=== PATIENT | female | born 1985 | race Caucasian/White ===

== ENCOUNTER 2016-02-27 12:00 | Emergency (ER) | payer BC ==
[~2016-02-27] VITALS: Ht 157.5 cm; Wt 73.0 kg
[2016-02-27 12:22] VITALS: BP 113/63; PULSE 84; RESP 17; O2SAT 98
--- NOTE | 2016-02-27 12:34 | PD ---
HPI Chief Complaint: GI Complaint Time Seen by Provider: 12:34 Travel History International Travel<30 days: No Contact w/Intl Traveler<30days: No Traveled to known affect area: No History of Present Illness HPI 31-year-old female with no significant medical history, presents to the emergency department for evaluation of nausea, vomiting, diarrhea since yesterday. Patient has felt febrile and chilled. She has not taken her temperature. She denies any significant abdominal pain. No little red or black tarry stools. No coffee-ground or little red emesis. No cough or chest congestion. The patient has no other symptoms to report of the same. [facility] Past Medical History Medical History: Denies Significant Hx Medical other: Yes (graves) ?: Not LMP: current Past Surgical History Section: Yes Cholecystectomy: Yes Social History Alcohol Use: Yes Tobacco Use: No Substance Use: No Allergies-Medications (Allergen,Severity, Reaction): Coded Allergies: Sulfa (Verified Allergy, Severe, 02/27/16) Reported Meds & Prescriptions Reported Meds & Active Scripts Active Zofran Odt (Ondansetron Odt) 4 Mg Tab 4 Mg SL Q6HR PRN Review of Systems Except as stated in HPI: all other systems reviewed are Neg Physical Exam Narrative GENERAL: Well-nourished, well-developed male patient in no acute distress SKIN: Warm and dry. HEAD: Normocephalic. EYES: No scleral icterus. No injection or drainage. NECK: Supple, trachea midline. No JVD or lymphadenopathy. CARDIOVASCULAR: Regular rate and rhythm without murmurs, gallops, or rubs. RESPIRATORY: Breath sounds equal bilaterally. No accessory muscle use. Abdomen: Abdomen soft, non-tender, nondistended. Positive bowel sounds. No hepato-splenomegaly, or palpable masses. No guarding. MUSCULOSKELETAL: No cyanosis, or edema. BACK: Nontender without obvious deformity. No CVA tenderness. Data Data Last Documented VS Vital Signs Date Time Temp Pulse Resp B/P Pulse Ox O2 Delivery O2 Flow Rate FiO2 02/27/16 14:00 17 02/27/16 12:22 84 113/63 98 Orders Iv Access Insert/Monitor (02/27/16 12:32) Complete Blood Count With Diff (02/27/16 12:32) Basic Metabolic Panel (Bmp) (02/27/16 12:32) Urinalysis - C+S If Indicated (02/27/16 12:32) Ed Urine Pregnancytest Poc (02/27/16 12:32) Ondansetron Inj (Zofran Inj) (02/27/16 12:45) Sodium Chlor 0.9% 1000 Ml Inj (Ns 1000 M (02/27/16 12:45) Potassium Chloride (Kcl) (02/27/16 13:45) Labs Laboratory Tests Test 02/27/16 12:50 White Blood Count 4.4 TH/MM3 Red Blood Count 4.49 MIL/MM3 Hemoglobin 12.6 GM/DL Hematocrit 37.3 % Mean Corpuscular Volume 83.0 FL Mean Corpuscular Hemoglobin 28.1 PG Mean Corpuscular Hemoglobin 33.8 % Concent Red Cell Distribution Width 14.3 % Platelet Count 273 TH/MM3 Mean Platelet Volume 7.9 FL Neutrophils (%) (Auto) 70.7 % Lymphocytes (%) (Auto) 16.8 % Monocytes (%) (Auto) 11.2 % Eosinophils (%) (Auto) 1.0 % Basophils (%) (Auto) 0.3 % Neutrophils # (Auto) 3.1 TH/MM3 Lymphocytes # (Auto) 0.7 TH/MM3 Monocytes # (Auto) 0.5 TH/MM3 Eosinophils # (Auto) 0.0 TH/MM3 Basophils # (Auto) 0.0 TH/MM3 CBC Comment DIFF FINAL Differential Comment Urine Color YELLOW Urine Turbidity CLEAR Urine pH 5.5 Urine Specific Eldred 1.030 Urine Protein 30 mg/dL Urine Glucose (UA) NEG mg/dL Urine Ketones 40 mg/dL Urine Occult Blood LARGE Urine Nitrite NEG Urine Bilirubin NEG Urine Urobilinogen LESS THAN 2.0 MG/DL Urine Leukocyte Esterase NEG Urine RBC /hpf Urine WBC 3-5 /hpf Urine Squamous Epithelial >8 /hpf Cells Urine Amorphous Sediment SMALL Sodium Level 138 MEQ/L Potassium Level 3.1 MEQ/L Chloride Level 106 MEQ/L Carbon Dioxide Level 25.2 MEQ/L Anion Gap 7 MEQ/L Blood Urea Nitrogen 11 MG/DL Creatinine 0.70 MG/DL Estimat Glomerular Filtration 98 ML/MIN Rate Random Glucose 81 MG/DL Calcium Level 8.4 MG/DL [facility] Medical Decision Making Medical Screen Exam Complete: Yes Emergency Medical Condition: Yes Medical Record Reviewed: Yes Differential Diagnosis Gastroenteritis versus gastritis versus colitis versus influenza Narrative Course 31-year-old female presents to the emergency department for evaluation of nausea , vomiting, diarrhea. Patient has had no episodes of vomiting or diarrhea here in the emergency department. Vital signs are stable. Patient is given IV fluids and Zofran. CBC is without acute concern. BMP is with mild hypokalemia 3.1. Urinalysis is a 30 proteinuria, 40 ketones, large occult blood. Patient is on her menstrual cycle. Patient takes this by mouth and able to tolerate it. Following reassessment, patient verbalizes marked improvement in her symptoms. She is discharged with a work note and Zofran ODT. She agrees to return immediately with any acute worsening of symptoms. Diagnosis Primary Impression: Gastroenteritis Referrals: Primary Care Physician Patient Instructions: Gastroenteritis (ED), General Instructions Departure Forms: Tests/Procedures, Work Release Enter return to work date: Feb 29, 2016 Additional Instructions: Rest Maintain adequate oral hydration Clear liquid diet. Advance as tolerated Return immediately to the emergency department with any acute worsening of symptoms Med/Other Pt SpecificInfo: Prescription(s) given Scripts Ondansetron Odt (Zofran Odt)4 Mg Tab4 Mg SL Q6HR PRN (Nausea/Vomiting) #15 TAB Ref 0 Prov:Bernarda Rodriguez 02/27/16 Disposition: 01 DISCHARGE HOME Condition: Stable Bernarda Rodriguez Feb 27, 2016 12:34
[2016-02-27] MEDS ORDERED: SODIUM CHLOR 0.9% 1000 ML INJ 1,000 ML IV ONE (12:45)
[2016-02-27] MEDS ORDERED: ONDANSETRON HCL 4 MG/2 ML VIAL IV PUSH ONE (12:45)
[2016-02-27 13:04] LABS: AUTOMATED NEUTROPHIL # 3.1 TH/MM3 (1.8-7.7); BASOPHIL % 0.3 % (0.0-2.0); HEMATOCRIT 37.3 % (35.0-46.0); HEMO FLAGS DIFF FINAL; LYMPH % 16.8 % (9.0-44.0); LYMPHOCYTE # 0.7 TH/MM3 (1.0-4.8); MEAN CORPUSCULAR HEMOGLOBIN 28.1 PG (27.0-34.0); MEAN CORPUSCULAR HGB CONC 33.8 % (32.0-36.0); MONO % 11.2 % (0.0-8.0); NEUT % 70.7 % (16.0-70.0); PLATELET COUNT 273 TH/MM3 (150-450); RED BLOOD COUNT 4.49 MIL/MM3 (4.00-5.30); RED CELL DISTRIBUTION WIDTH 14.3 % (11.6-17.2); WHITE BLOOD COUNT 4.4 TH/MM3 (4.0-11.0)
[2016-02-27 13:10] LABS: BLOOD, URINE LARGE (NEG); GLUCOSE,URINE NEG (NEG); KETONE, URINE 40 mg/dL (NEG); NITRITE,URINE NEG (NEG); PH, URINE 5.5 (5.0-8.5)
[2016-02-27 13:18] LABS: BICARBONATE 25.2 MEQ/L (21.0-32.0); POTASSIUM 3.1 MEQ/L (3.5-5.1)
[2016-02-27 13:33] LABS: SQUAMOUS EPITHELIAL CELL URINE >8 /hpf (0-5); URINE COLOR YELLOW (YELLW/STRAW)
[2016-02-27 13:35] LABS: CULTURE IF INDICATED CULT NOT INDICATED
[2016-02-27] MEDS ORDERED: ZOFR4TAB3 SL ×2 (13:42→13:44)
[2016-02-27] MEDS ORDERED: POTASSIUM CHLORIDE 10 MEQ CONTROLLED RELEASE TAB PO ONE (13:45)
== END 2016-02-27 15:01 | disposition home or self-care (01) ==
LOC: NEDAMB 12:00
DX: K52.9 Noninfective gastroenteritis and colitis, unspecified (principal)
CPT/HCPCS: 80048; 81001; 84703; 85025; 96374; 96375; 99284; J2405; J7030